=== PATIENT | female | born 1970 | race Caucasian/White ===

== ENCOUNTER 2018-10-21 19:45 | Emergency (ER) | payer MEDICAID, OTHER ==
[~2018-10-21] VITALS: Ht 165.1 cm; Wt 69.4 kg
[~2018-10-21 19:45] MED LIST: IBUP-1542 PO; MESA800T2 PO; PANT20TA2 PO
[2018-10-21 19:48] VITALS: Ht 165.1 cm; Wt 69.4 kg
[2018-10-21] MEDS ORDERED: LORAZEPAM 0.5 MG TAB PO ONE (21:30)
[2018-10-21 23:52] VITALS: BP 122/69; PULSE 78; RESP 18
--- NOTE | 2018-10-22 08:39 | ERD ---
ER Documentation Chief Complaint Chief Complaint ANXIETY- FEELING NUMBNESS, CWP, SOB, ON/OFF EPISTAXIS; STARTED 10AM HPI 48-year-old female presents with multiple complaints. She is complaining of intermittent episodes of epistaxis for the past several months. She states she had an episode at 10 AM this morning. This is well controlled. There is no active bleeding. Patient is also complaining of periorbital and facial numbness and tingling with chest pain, palpitations or shortness of breath. Family states that patient has a history of similar symptoms when getting angry or anxious. Patient does not take any medications for this. Family is concerned about a stroke and requesting work-up. Patient denies any focal weakness. Denies any current chest pain, diaphoresis, nausea, vomiting or any other complaints. ROS All systems reviewed and are negative except as per history of present illness. Medications Home Meds Active Scripts Ibuprofen* (Motrin*) 600 Mg Tab, 600 MG PO Q6H PRN for PAIN AND OR ELEVATED TEMP, #30 TAB Prov:RUMA STEVENS PA-C 03/27/16 Reported Medications Pantoprazole* (Protonix*) 20 Mg Tablet.dr, 500 MG PO DAILY 06/16/11 Mesalamine* (Asacol HD) 800 Mg Tablet.dr, 800 MG PO TID 06/16/11 Allergies Allergies: Coded Allergies: No Allergy Information Available (Verified Allergy, Mild, 06/17/11) Uncoded Allergies: CODIENE (Allergy, 06/16/11) PMhx/Soc History of Surgery: Yes (APPENDECTOMY, X2 CS) Anesthesia Reaction: No Hx Neurological Disorder: No Hx Respiratory Disorders: No Hx Cardiac Disorders: No Hx Psychiatric Problems: No Hx Alcohol Use: No Hx Substance Use: No Hx Tobacco Use: No Smoking Status: Never smoker Physical Exam Vitals Vital Signs Date Temp Pulse Resp B/P (MAP) Pulse Ox O2 O2 Flow FiO2 Time Delivery Rate 10/21/18 97.6 78 18 122/69 98 Room Air 23:52 (86) 10/21/18 97.0 72 19 160/77 100 19:48 (104) Physical Exam Const: + Very anxious appearing. Head: Atraumatic Eyes: Normal Conjunctiva ENT: Normal External Ears, Nose and Mouth. + No blood seen in bilateral nares. No active bleeding. Neck: Full range of motion. No meningismus. Resp: Clear to auscultation bilaterally Cardio: Regular rate and rhythm, no murmurs Abd: Soft, non tender, non distended. Normal bowel sounds Skin: No petechiae or rashes Back: No midline or flank tenderness Ext: No cyanosis, or edema Neuro: M/S: Alert and oriented Face: EOMI, face and pharynx with normal sensation and function Motor: Normal strength throughout Sensation: Normal sensation throughout Speech: Normal Cerebel: Normal coordination Normal gait Psych: Normal Mood and Affect Result Diagram: 10/21/18212010/21/182120 Results 24 hrs Laboratory Tests Test 10/21/18 21:21 10/21/18 21:26 White Blood Count 11.1 10^3/ul Red Blood Count 4.42 10^6/ul Hemoglobin 13.5 g/dl Hematocrit 40.9 % Mean Corpuscular Volume 92.5 fl Mean Corpuscular Hemoglobin 30.5 pg Mean Corpuscular Hemoglobin Concent 33.0 g/dl Red Cell Distribution Width 11.9 % Platelet Count 373 10^3/UL Mean Platelet Volume 9.6 fl Immature Granulocytes % 0.400 % Neutrophils % 54.9 % Lymphocytes % 34.7 % Monocytes % 7.3 % Eosinophils % 2.2 % Basophils % 0.5 % Nucleated Red Blood Cells % 0.0 /100WBC Immature Granulocytes # 0.040 10^3/ul Neutrophils # 6.1 10^3/ul Lymphocytes # 3.8 10^3/ul Monocytes # 0.8 10^3/ul Eosinophils # 0.2 10^3/ul Basophils # 0.1 10^3/ul Nucleated Red Blood Cells # 0.0 10^3/ul Sodium Level 143 mmol/L Potassium Level 4.6 mmol/L Chloride Level 102 mmol/L Carbon Dioxide Level 30 mmol/L Anion Gap 11 Blood Urea Nitrogen 14 mg/dl Creatinine 0.66 mg/dl Est Glomerular Filtrat Rate mL/min > 60 mL/min Glucose Level 102 mg/dl Calcium Level 10.0 mg/dl Troponin I < 0.012 ng/ml POC Beta HCG, Qualitative NEGATIVE Current Medications Medications Dose Sig/Domenic Start Time Status Last (Trade) Ordered Route PRN Stop Time Admin Dose Reason Admin Lorazepam 1 mg ONCE ONCE 10/21/18 DC 5/21/19 (Ativan) PO 21:30 21:22 10/21/18 21:31 Procedures/MDM LABS CBC: no e/o of systemic infection or severe anemia BMP: no e/o severe acidosis, alkalosis, renal failure, diabetic ketoacidosis Troponin: neg Beta hcg: neg DIAGNOSTIC IMAGING: PROCEDURE: CT Brain without contrast. CLINICAL INDICATION: Headache and facial numbness. TECHNIQUE: A CT of the brain was performed utilizing axial imaging from the skull base through the vertex without IV contrast. Multiplanar reformatted i mages were made. Images were reviewed on a PACS workstation. The CTDIvol is 38.54 mGy and the DLP is 634.23 mGycm. DICOM images are available. One or more of the following dose reduction techniques were utilized: 1.) Automated exposure control 2.) Adjustment of the mA +/- kV according to patient's size 3.) Use of iterative reconstruction technique. COMPARISON: None FINDINGS: There is no intracranial hemorrhage, mass effect, or midline shift. No extra- axial fluid collection is seen. The ventricles and sulci are normal in size and configuration. The density of the brain is normal, and the shaikh white matter differentiation appears well-preserved. The visualized paranasal sinuses and osseous structures are grossly unremarkable. IMPRESSION: 1. No evidence of acute intracranial pathology. 2. The brain is normal in appearance. PROCEDURE: XR chest. CLINICAL INDICATION: Chest pain TECHNIQUE: Portable AP view of the chest was obtained. COMPARISON: 03/27/2016 FINDINGS: Cardiomediastinal silhouette is normal. There is no pneumothorax or pleural ef fusion. There is no focal pulmonic consolidation. IMPRESSION: 1. No acute pulmonary abnormality. PROCEDURES: 12-lead EKG interpretation as interpeted by Dr. Spivey. Normal Sinus Rhythm with ventricular rate of 71 beats per minute Normal axis Normal intervals No acute ST or T wave changes suggestive of acute ischemia or STEMI. ED COURSE: The patient was given p.o. Ativan The medication was well tolerated and the patient had market improvement in symptoms. The patient remained stable throughout ED course. MEDICAL DECISION MAKIN-year-old female presents with what appears to be anxiety. She also complains of intermittent epistaxis for the past several months. CBC was obtained to rule out anemia. CBC, as well as CMP are unremarkable. CT of the head and chest x- ray as requested per family was normal. Troponin normal. Patient's history and physical is most consistent with anxiety type reaction. Her symptoms improved status post p.o. Ativan. She does not meet PERC criteria. I have low suspicion for PE/DVT, NM, AAA, pneumothorax, ACS, CVA, or any other significant cardiac process at this time. I recommended following up with her primary care provider for referral to an outpatient behavioral health specialist. Strict return precautions were discussed. PRESCRIPTIONS: None SPECIALIST FOLLOW UP RECOMMENDED: None Patient has been advised to follow up with primary care in 1-2 days. Departure Diagnosis: Primary Impression: Anxiety Condition: Stable Patient Instructions: Anxiety Reaction Referrals: [facility] (PCP) Additional Instructions: Paciente aconseja volver a Departamento de urgencias inmediatamente para sntomas nuevos o que empeoran . Paciente aconseja posteriores con el PCP en 1-2 dixon. Si el paciente no tiene ninguna de atencin primaria pueden seguir con [facility] [id number] [place] [id number] o [facility] + [facility] [address] [place] [id number] FLORENCE COOPER PA-C October 22, 2018 08:39
== END 2018-10-21 23:53 | disposition home or self-care (01) ==
LOC: FTE 19:45
DX: F41.9 Anxiety disorder, unspecified (principal); R07.89 Other chest pain; R51 Headache
CPT/HCPCS: 70450; 71045; 80048; 81025; 84484; 85025; 93005; Z7610; 36415